=== PATIENT | male | born 1970 | race Caucasian/White ===

== ENCOUNTER 2017-10-14 10:24 | Emergency (ER) | payer MEDICARE, MEDICAID, SELFPAY ==
[2017-10-14 10:26] VITALS: BP 113/73; PULSE 107; RESP 16; TEMP 36.4; O2SAT 95; BMI 25.2
--- NOTE | 2017-10-14 10:47 | RAD_ITS ---
STUDY: X-RAY - LUMBAR SPINE REASON FOR EXAM: Male, 47 years old. Low back pain and right leg pain following a recent TECHNIQUE: 3 view(s) of the lumbar spine were obtained. COMPARISON: None FINDINGS: There is straightening of the normal lumbar lordosis. There is no substantial scoliosis. There is a normal alignment of the vertebrae. There is multilevel endplate spondylosis of the lumbar vertebrae. There is multi-level degenerative disc disease with multi-level disc space narrowing. The soft tissue structures are unremarkable. RAD/Lumbar Spine 2 or 3 Views IMPRESSION: Degenerative changes of the spine, as detailed above. Straightening of the normal lumbar lordosis. Electronically Signed: Sree García MD at 11:34 EDT Tel [phone], Service support ,
[2017-10-14] MEDS: Ketorolac 30 MG/ML Syringe IM (10:55)
[2017-10-14] MEDS: Orphenadrine 60 MG/2 ML Ampul IM (10:55)
--- NOTE | 2017-10-14 11:05 | ED.VISSUMM ---
- ER Visit Summary Date of Service: 10/14/17 Chief Complaint: Back pain History of Present Illness: The patient is a 47 M who presents with back pain that became worse today. Patient states he has a history of chronic back pain and is homeless. Patient states he slept on a hotel floor last night and his pain became worse today. Patient states the pain radiates down his right leg. Patient states this is typical for his sciatica. Patient admits to some numbness and tingling in his right lower extremity. Patient denies any weakness. Patient denies any bowel or bladder changes. Patient denies any saddle anesthesia. Patient denies any recent trauma or injury. Physical Examination: Vital signs are stable. Patient is afebrile. Patient is in no acute distress. Musculoskeletal exam reveals tenderness and spasm of the lumbar paraspinal muscles. There is some mild midline tenderness. There is no bony crepitance or step-off. Range of motion was slightly limited in all motion secondary to pain. Strength is 5/5 bilateral. There is no sensory deficits noted. Tendon reflexes were 2+/4 bilaterally in the lower extremities. The remaining physical exam is within normal limits. Test Results: X-rays of the lumbar spine were obtained. There is no acute spondylolisthesis or fracture. Emergency Department Course and Treatment: Patient was given injections of Toradol and Norflex here. Patient states his pain was starting to improve on reevaluation. Patient was given prescriptions for Naprosyn and Flexeril. Patient was instructed to follow-up with his primary care physician in 5-7 days. Patient understood and was agreeable with the plan. All questions were answered. Disposition: Discharged home Impression: Acute low back pain This note was generated with [employer] dictation software. It may contain incorrect words, spelling, and punctuation that were not noted in review of the chart prior to signing ED Disposition - Plan for ED Patient: Disposition: Home or Assisted Living Chief Complaint: Back Diagnosis: Acute low back pain Prescriptions: Naproxen [Naprosyn] 500 mg PO BID PRN PRN #20 tab PRN Reason: Pain Cyclobenzaprine [Flexeril] 10 mg PO TID PRN #20 tab PRN Reason: Muscle Spasm Referrals: Ava Sampson MD [Primary Care Provider] -
[2017-10-14 13:00] VITALS: PULSE 86; RESP 16; O2SAT 98
--- NOTE | 2017-10-14 13:10 | ED.RN ---
1300-Verbal and written d/c instructions given. Unable to obtain BP as patient is very agitated and yelling at staff. Attempted to redirect patient and he walked out of ED with steady gait, continuing to yell at staff. No distress noted.
== END 2017-10-14 13:02 | disposition home or self-care (01) ==
PROVIDERS: Emergency Provider Emergency Medicine; Family Provider Internal Medicine; PCP Internal Medicine
DX: M54.40 Lumbago with sciatica, unspecified side (principal); K59.00 Constipation, unspecified; G89.29 Other chronic pain; M54.2 Cervicalgia; M25.519 Pain in unspecified shoulder; Z59.0 Homelessness
CPT/HCPCS: 72100; 96372; 99282

== ENCOUNTER 2017-10-17 12:14 | Emergency (ER) | payer MEDICARE, MEDICAID, SELFPAY ==
[2017-10-17 12:15] VITALS: BP 149/85; PULSE 92; RESP 20; TEMP 36.9; O2SAT 98; BMI 25.1
--- NOTE | 2017-10-17 12:56 | ED.VISSUMM ---
- ER Visit Summary Date of Service: 10/17/17 Chief Complaint: Back pain History of Present Illness: The patient is a 47 M with left lower back pain. This was exacerbated by sleeping on hotel floor. He has a history of back pain. He was seen in an outside emergency department and had Toradol, but it did not help. He is requesting a narcotic for the pain. He says he follows with a chiropractor. No history of back surgery. No change in bowel or bladder. No sexual dysfunction. No new numbness or weakness. No abdominal pain or GI symptoms. No fevers. Physical Examination: Afebrile and vital signs unremarkable. Left paraspinal tenderness to palpation. No spinal tenderness. Straight leg raise negative. Strength and sensation intact distally. Skin appears normal. Test Results: None indicated Emergency Department Course and Treatment: Patient had prior x-rays. Already had Toradol. Will add Norflex and Kenalog. Will prescribe Flexeril. He can take [id number] naproxen. Follow-up with his chiropractor. Treatment Plan: As above Disposition: Discharged Impression: 1. Acute on chronic lumbar pain This note was generated with [employer] dictation software. It may contain incorrect words, spelling, and punctuation that were not noted in review of the chart prior to signing ED Disposition - Plan for ED Patient: Chief Complaint: Back Referrals: Ava Sampson MD [Primary Care Provider] -
--- NOTE | 2017-10-17 12:58 | ED.DEP ---
ED Disposition - Plan for ED Patient: Chief Complaint: Back Instructions: ED Sprain Strain Lumbar Prescriptions: Cyclobenzaprine [Flexeril] 10 mg PO TID PRN #20 tab PRN Reason: Muscle Spasm Referrals: Ava Sampson MD [Primary Care Provider] -
[2017-10-17] MEDS: Triamcinolone Acetonide 40 MG/ML Vial IM (13:02)
[2017-10-17] MEDS: Orphenadrine 60 MG/2 ML Ampul IM (13:02)
[2017-10-17 13:10] VITALS: BP 140/101; PULSE 82; RESP 16; O2SAT 97
== END 2017-10-17 13:20 | disposition home or self-care (01) ==
PROVIDERS: Emergency Provider Emergency Medicine; Family Provider Internal Medicine; PCP Internal Medicine
DX: M54.40 Lumbago with sciatica, unspecified side (principal); G89.29 Other chronic pain; Z72.0 Tobacco use
CPT/HCPCS: 96372; 99283

== ENCOUNTER → 2018-01-07 11:24 | Outpatient (CLI) | payer MEDICARE, MEDICAID, SELFPAY ==
[2018-01-07 13:04] LABS: ALB/GLOB Ratio 1.4 RATIO (0.9-2.4); AST(SGOT) 21 U/L (15-37); Alanine Aminotransfer ALT/SGPT 31 U/L (16-61); Albumin, Serum 4.4 g/dL (3.2-5.0); Alkaline Phosphatase 87 U/L (45-117); Anion Gap 10 (5-15); BUN 14 mg/dL (7-18); BUN/Creat Ratio 14.7 RATIO (10-20); Calcium,Total 9.2 mg/dL (8.5-10.1); Chloride 101 mmol/L (98-107); Creatinine, Serum 0.95 mg/dL (0.70-1.30); EST Glomerular Filtration Rate 91 mL/min (>60); Est Glom Filt Rate - Afr Amer 110 mL/min (>60); Globulin 3.1 g/dL (2.2-4.2); Glucose 85 mg/dL (74-106); Protein, Total 7.5 g/dL (6.4-8.2); Sodium Level 141 mmol/L (136-145)
[2018-01-07 13:26] LABS: Color, Urine Yellow (Yellow); Glucose, Dipstick Normal (Normal); Leukocyte Esterase-Dipstick 25 /ul (Negative); Nitrite-Dipstick Negative (Negative); Occult Blood-Urine 10 /ul (Negative); Protein-Dipstick 15 mg/dl (Negative); Specific Gravity, Urine 1.025 (1.002-1.030); Urine Bilirubin Dipstick Negative (Negative); Urine Clarity Sl. Cloudy (Clear); Urine Urobilinogen 1 mg/dl (Normal)
[2018-01-07 13:44] LABS: Bacteria 1+ /hpf (None Seen); HIV - WCH Non-Reactive (Nonreactive); Mucous, Urine 4+ /hpf (<or=2+); Red Blood Cells-Urine 0-5 SEEN /hpf (0-5); Squamous Epithelial Cells - UA 0-5 SEEN /hpf (0-5); White Blood Cells 0-5 SEEN /hpf (0-5)
[2018-01-07 15:05] LABS: Ketone-Dipstick 150 mg/dl (Negative)
[2018-01-07 17:00] LABS: Chlamydia Trachomatis by PCR Negative (Negative); Neisserai gonorrhoeae by PCR Negative (Negative); Probe Check PASS; Sample Adequacy Control PASS; Specimen Processing Control PASS
[2018-01-09 03:07] LABS: HEPATITIS B SURFACE AG Negative (Negative); Hepatitis A AB, Total Negative (Negative); Hepatitis A IgM Antibody Negative (Negative); Hepatitis B Core AB IgM Negative (Negative); Hepatitis B Core Ab Total Negative (Negative); Hepatitis C Ab <0.1 s/co ratio (0.0-0.9)
[2018-01-09 03:47] LABS: Rapid Plasmin Reagin (RPR) NONREACTIVE (NONREACTIVE)
[2018-01-09 07:14] LABS: Hep B Surface Antibodies Non Reactive (.); Hep C Antibodies <0.1 s/co ratio (0.0-0.9)
== END ==
PROVIDERS: Family Provider Internal Medicine; PCP Internal Medicine; Visit Provider Nurse Practitioner Family
DX: Z20.5 Contact with and (suspected) exposure to viral hepatitis (principal); Z72.51 High risk heterosexual behavior; Z20.6 Contact with and (suspected) exposure to human immunodeficiency virus [HIV]
CPT/HCPCS: 36415; 80053; 81001; 86592; 86703; 86704; 86705; 86706; 86708; 86709; 86803; 87340; 87491; 87591

== ENCOUNTER 2018-01-07 11:46 | Emergency (ER) | payer MEDICARE, MEDICAID, SELFPAY ==
[2018-01-07 11:47] VITALS: BP 121/75; PULSE 97; RESP 12; TEMP 36.5; O2SAT 98; BMI 24.2
--- NOTE | 2018-01-07 12:08 | ED.VISSUMM ---
- ER Visit Summary Date of Service: 01/07/18 Chief Complaint: Acute on chronic foot pain History of Present Illness: The patient is a 47 M history reportedly of gout, chronic back pain and psychiatric history. Patient states he walked to his primary care physician's office today to be diagnosed with an STD. They sent him to the hospital to get a culture done. And he states of all walking is flared up his gout and he was requesting pain medication so he can walk home. He denies any acute trauma. He said he has had his multiple times that he was having pain for the last several weeks. He denies any fever. On reviewing the patient's medical records he has been here multiple times in the past for different pain issues. He is also been confronted with or his reports in the past that are positive for multiple narcotic prescriptions. Physical Examination: Well-appearing middle-age male. Vital signs are stable afebrile. He is in no acute distress. H EENT exam unremarkable. Poor dentition. Neck nontender. Lungs clear to auscultation bilaterally. Heart regular rate and rhythm no murmur. Abdomen soft nontender. He is moving all 4 extremities. Neurovascular intact. He has strong DP pulses of both feet. There is no swelling. No gross deformities. There really is not an acute flare of gout at this time. He states he has chronic pain in his right great toe at the metatarsal phalangeal joint. It is minimally red it is not really swollen. And is not significantly tender. Test Results: None necessary at this time Emergency Department Course and Treatment: Patient will be offered Motrin for his pain. I do not feel narcotics are necessary and he has had issues with trying to receive narcotics to the ER in the past. Treatment Plan: Patient refused prednisone. And has anti-inflammatories at home. Disposition: Discharge Impression: Acute on chronic foot pain History of gout This note was generated with [employer] dictation software. It may contain incorrect words, spelling, and punctuation that were not noted in review of the chart prior to signing ED Disposition - Plan for ED Patient: Chief Complaint: Other, Pain/Inj Referrals: Ava Sampson MD [Primary Care Provider] -
--- NOTE | 2018-01-07 12:10 | ED.DEP ---
ED Disposition - Plan for ED Patient: Disposition: Home or Assisted Living Chief Complaint: Other, Pain/Inj Instructions: Common Myths About Pain Medications, ED Chronic Pain Management Referrals: Ava Sampson MD [Primary Care Provider] - 1 Week if not improving
[2018-01-07 12:25] VITALS: BP 132/70; PULSE 80; RESP 14; O2SAT 98
[2018-01-07] MEDS: Ibuprofen 600 MG Tablet PO (12:32)
== END 2018-01-07 12:35 | disposition home or self-care (01) ==
PROVIDERS: Emergency Provider Emergency Medicine; Family Provider Internal Medicine; PCP Internal Medicine
DX: M10.9 Gout, unspecified (principal); M25.571 Pain in right ankle and joints of right foot; G89.29 Other chronic pain; M54.5 Low back pain; F31.9 Bipolar disorder, unspecified; Z87.19 Personal history of other diseases of the digestive system; F17.200 Nicotine dependence, unspecified, uncomplicated; Z79.899 Other long term (current) drug therapy; Z20.5 Contact with and (suspected) exposure to viral hepatitis; Z72.51 High risk heterosexual behavior; Z20.6 Contact with and (suspected) exposure to human immunodeficiency virus [HIV]
CPT/HCPCS: 36415; 80053; 81001; 86592; 86703; 86704; 86705; 86706; 86708; 86709; 86803; 87340; 87491; 87591; 99282

== ENCOUNTER 2018-01-14 22:49 | Emergency (ER) | payer MEDICARE, MEDICAID, SELFPAY ==
[2018-01-14 22:49] VITALS: BP 102/75; PULSE 71; RESP 16; TEMP 36.9; O2SAT 99; BMI 22.9
--- NOTE | 2018-01-14 23:13 | ED.VISSUMM ---
- ER Visit Summary Date of Service: 01/14/18 Chief Complaint: Dysuria History of Present Illness: The patient is a 47 M poorly diagnosed by his primary care physician's office with a recent UTI. States is on antibiotic is taken twice a day he believes it is Bactrim. He is complaining of bladder pain and was hoping to get something for the pain. Of note patient is in the ER quite frequently often for pain complaints. He states he is emptying his bladder. Denies any urinary retention. He has had no prior abdominal or surgeries. Physical Examination: Well-appearing middle-age male. Vital signs are stable afebrile. He does not look septic or toxic. He is in no distress. He is well-hydrated. HEENT exam unremarkable. Neck nontender no lymphadenopathy. Lungs clear to auscultation bilaterally. Heart regular rate and rhythm no murmur. Abdomen is soft and nontender. Normal bowel sounds no peritoneal signs. There is no bladder distention. There is no right upper right lower quadrant tenderness. There is no hernias or masses. There is no signs of obstruction. The abdomen is benign patient moving all 4 extremities. Calves are nontender without edema. Neurologically he is awake alert without focal deficits. Back exam is nontender there is no CVA tenderness. Test Results: None Emergency Department Course and Treatment: Discussed with patient options of using Tylenol and Motrin for pain. I explained to him there is absolutely no reason to write for any narcotic pain meds. He will be given a very short course of Pyridium for potential bladder spasm. Treatment Plan: Pyridium 3 times daily for 2 days. Disposition: Discharge Impression: UTI with bladder spasms This note was generated with [employer] dictation software. It may contain incorrect words, spelling, and punctuation that were not noted in review of the chart prior to signing ED Disposition - Plan for ED Patient: Chief Complaint: Complaint Referrals: Ava Sampson MD [Primary Care Provider] -
--- NOTE | 2018-01-14 23:16 | ED.DCSUM_ITS ---
- ER Visit Summary Date of Service: 01/14/18 Chief Complaint: Dysuria History of Present Illness: The patient is a 47 M poorly diagnosed by his primary care physician's office with a recent UTI. States is on antibiotic is taken twice a day he believes it is Bactrim. He is complaining of bladder pain and was hoping to get something for the pain. Of note patient is in the ER quite frequently often for pain complaints. He states he is emptying his bladder. Denies any urinary retention. He has had no prior abdominal or surgeries. Physical Examination: Well-appearing middle-age male. Vital signs are stable afebrile. He does not look septic or toxic. He is in no distress. He is well- hydrated. HEENT exam unremarkable. Neck nontender no lymphadenopathy. Lungs clear to auscultation bilaterally. Heart regular rate and rhythm no murmur. Abdomen is soft and nontender. Normal bowel sounds no peritoneal signs. There is no bladder distention. There is no right upper right lower quadrant tenderness. There is no hernias or masses. There is no signs of obstruction. The abdomen is benign patient moving all 4 extremities. Calves are nontender without edema. Neurologically he is awake alert without focal deficits. Back exam is nontender there is no CVA tenderness. Test Results: None Emergency Department Course and Treatment: Discussed with patient options of using Tylenol and Motrin for pain. I explained to him there is absolutely no reason to write for any narcotic pain meds. He will be given a very short course of Pyridium for potential bladder spasm. Treatment Plan: Pyridium 3 times daily for 2 days. Disposition: Discharge Impression: UTI with bladder spasms This note was generated with [employer] dictation software. It may contain incorrect words, spelling, and punctuation that were not noted in review of the chart prior to signing ED Disposition - Plan for ED Patient: Chief Complaint: Complaint Referrals: Ava Sampson MD [Primary Care Provider] -
--- NOTE | 2018-01-14 23:16 | ED.DEP ---
ED Disposition - Plan for ED Patient: Disposition: Home or Assisted Living Chief Complaint: Complaint Instructions: ED UTI Cystitis Male Prescriptions: Phenazopyridine [Pyridium] 200 mg PO TID #9 tab Referrals: Ava Sampson MD [Primary Care Provider] - 3-5 Days if not improving Additional Instructions: Plenty of fluids and rest. Continue and finish her antibiotic. Pyridium as needed for bladder spasm. This may turn her urine a dark color. Tylenol and Motrin for pain.
[2018-01-14] MEDS: Phenazopyridine 95 MG Tablet 190 MG PO (23:40)
[2018-01-14 23:42] VITALS: BP 112/81; PULSE 68; RESP 14; O2SAT 97
== END 2018-01-14 23:46 | disposition home or self-care (01) ==
PROVIDERS: Emergency Provider Emergency Medicine; Family Provider Internal Medicine; PCP Internal Medicine
DX: N39.0 Urinary tract infection, site not specified (principal); N32.89 Other specified disorders of bladder; F17.200 Nicotine dependence, unspecified, uncomplicated
CPT/HCPCS: 99283

== ENCOUNTER 2018-03-16 13:04 | Emergency (ER) | payer MEDICARE, SELFPAY ==
[2018-03-16 13:05] VITALS: BP 115/82; PULSE 94; RESP 14; TEMP 37; O2SAT 98; BMI 23.6
--- NOTE | 2018-03-16 13:34 | ED.VISSUMM ---
- ER Visit Summary Date of Service: 03/16/18 Chief Complaint: Right hip pain History of Present Illness: The patient is a 48 M who presents with right hip pain. Been ongoing for 2 weeks. He started a new job that requires him to walk around a lot and he states he has been walking 8 miles home every day. The pain is on the anterior part of his hip. Is worse when he walks. Denies any falls or trauma Physical Examination: Vital signs reviewed. Right hip exam reveals tenderness of the anterior part of the hip. Pain with range of motion. No pain with logroll. No deformities. No pain over the greater trochanter Test Results: Right hip x-ray per my interpretation reveals no acute findings. Emergency Department Course and Treatment: Patient has hip pain without any radiographic evidence. Could be muscular strain. He was counseled using ice and stretching. He will continue NSAIDs will follow up with his PCP Treatment Plan: [] Disposition: Discharge Impression: Right hip pain This note was generated with [employer] dictation software. It may contain incorrect words, spelling, and punctuation that were not noted in review of the chart prior to signing ED Disposition - Plan for ED Patient: Chief Complaint: Lower Extremity Injury Referrals: Ava Sampson MD [Primary Care Provider] -
--- NOTE | 2018-03-16 13:48 | ED.DEP ---
ED Disposition - Plan for ED Patient: Disposition: Home or Assisted Living Chief Complaint: Lower Extremity Injury Instructions: ED Sprain Hip Referrals: Ava Sampson MD [Primary Care Provider] -
[2018-03-16 13:54] VITALS: BP 110/78; PULSE 90; RESP 14; O2SAT 98
== END 2018-03-16 14:19 | disposition home or self-care (01) ==
PROVIDERS: Emergency Provider Emergency Medicine; Family Provider Internal Medicine; PCP Internal Medicine
DX: M25.551 Pain in right hip (principal); M19.90 Unspecified osteoarthritis, unspecified site; F31.9 Bipolar disorder, unspecified; Z72.0 Tobacco use
CPT/HCPCS: 73502; 99282

== ENCOUNTER 2018-04-09 11:44 | Emergency (ER) | payer MEDICARE, SELFPAY ==
[2018-04-09 11:45] VITALS: BP 137/87; PULSE 100; RESP 20; TEMP 36.6; O2SAT 100; BMI 24.4
--- NOTE | 2018-04-09 12:36 | ED.VISSUMM ---
- ER Visit Summary Date of Service: 04/09/18 Chief Complaint: Migraine headache History of Present Illness: The patient is a 48 M who presents with a migraine headache that has been getting worse over the past 3 days. Patient states this feels similar to prior migraine headaches. Patient states the pain has gradually gotten worse. Patient admits to some photophobia. Patient denies any nausea or vomiting. Patient denies any paresthesias or weakness. Patient denies any fevers. Patient also states he exacerbated his chronic back pain when he dug a hole to bury a family pet recently. Patient denies any bowel or bladder changes. Patient denies any saddle anesthesia. Physical Examination: Vital signs are stable. Patient is afebrile. Patient is in no acute distress. Cranial nerves II through XII are intact. Strength is 5/5 bilateral in the upper and lower extremities. There are no sensory deficits noted. Patient ambulates without difficulty. Oral mucosa is pink and moist. Neck is supple. Trachea is midline. Is no JVD or lymphadenopathy noted. Heart was regular rate and rhythm. Lungs are clear and equal bilateral. Abdomen is soft and nontender. Bowel sounds are normal. The remaining physical exam is within normal limits. Emergency Department Course and Treatment: Patient was given IV fluids, Compazine, Benadryl, and Toradol. Patient became upset and left the emergency department. Patient took his IV out prior to leaving the department. Patient left without completing treatment. Disposition: Left without completing treatment Impression: Migraine headache This note was generated with [employer] dictation software. It may contain incorrect words, spelling, and punctuation that were not noted in review of the chart prior to signing ED Disposition - Plan for ED Patient: Disposition: Home or Assisted Living Chief Complaint: Headache Diagnosis: Migraine headache Referrals: Ava Sampson MD [Primary Care Provider] -
--- NOTE | 2018-04-09 12:39 | ED.DCSUM_ITS ---
- ER Visit Summary Date of Service: 04/09/18 Chief Complaint: Migraine headache History of Present Illness: The patient is a 48 M who presents with a migraine headache that has been getting worse over the past 3 days. Patient states this feels similar to prior migraine headaches. Patient states the pain has gradually gotten worse. Patient admits to some photophobia. Patient denies any nausea or vomiting. Patient denies any paresthesias or weakness. Patient denies any fevers. Patient also states he exacerbated his chronic back pain when he dug a hole to bury a family pet recently. Patient denies any bowel or bladder changes. Patient denies any saddle anesthesia. Physical Examination: Vital signs are stable. Patient is afebrile. Patient is in no acute distress. Cranial nerves II through XII are intact. Strength is 5/ 5 bilateral in the upper and lower extremities. There are no sensory deficits noted. Patient ambulates without difficulty. Oral mucosa is pink and moist. Neck is supple. Trachea is midline. Is no JVD or lymphadenopathy noted. Heart was regular rate and rhythm. Lungs are clear and equal bilateral. Abdomen is soft and nontender. Bowel sounds are normal. The remaining physical exam is within normal limits. Emergency Department Course and Treatment: Patient was given IV fluids, Compazine, Benadryl, and Toradol. Patient became upset and left the emergency department. Patient took his IV out prior to leaving the department. Patient left without completing treatment. Disposition: Left without completing treatment Impression: Migraine headache This note was generated with [employer] dictation software. It may contain incorrect words, spelling, and punctuation that were not noted in review of the chart prior to signing ED Disposition - Plan for ED Patient: Disposition: Home or Assisted Living Chief Complaint: Headache Diagnosis: Migraine headache Referrals: Ava Sampson MD [Primary Care Provider] -
[2018-04-09] MEDS: proCHLORPERazine 10 MG/2 ML Vial IV (12:57)
[2018-04-09] MEDS: DiphenhydrAMINE 50 MG/ML Syringe 25 MG IV (12:57)
[2018-04-09] MEDS: 0.9% Normal Saline 1,000 ML 999 ML IV (12:57)
[2018-04-09] MEDS: Ketorolac 30 MG/ML Syringe IV (12:57)
== END 2018-04-09 13:16 | disposition home or self-care (01) ==
LOC: ED 12:16
PROVIDERS: Emergency Provider Emergency Medicine; Family Provider Internal Medicine; PCP Internal Medicine
DX: G43.909 Migraine, unspecified, not intractable, without status migrainosus (principal); M54.9 Dorsalgia, unspecified; G89.29 Other chronic pain; F31.9 Bipolar disorder, unspecified; F17.200 Nicotine dependence, unspecified, uncomplicated
CPT/HCPCS: 96361; 96374; 96375; 99282; J7030; A4216

== ENCOUNTER 2018-04-10 18:12 | Emergency (ER) | payer MEDICARE, SELFPAY ==
[2018-04-10 18:14] VITALS: BP 123/97; PULSE 76; RESP 16; TEMP 36.7; O2SAT 98; BMI 23.6
--- NOTE | 2018-04-10 18:58 | ED.DCSUM_ITS ---
- ER Visit Summary Date of Service: 04/10/18 Chief Complaint: Left hand versus a sledgehammer History of Present Illness: The patient is a 48 M that is right-hand dominant. No significant past medical history. Reportedly today the patient was working with someone else he was holding stakes the gentleman was hitting mistakes with a sledgehammer slipped and hit the patient in hand. He denies any prior history or surgery to his left hand. He denies other injuries. Physical Examination: Well-appearing middle-age male. Vital signs stable afebrile. No distress. H EENT exam unremarkable. Poor dentition. Lungs clear to auscultation. Heart regular rhythm no murmur. Chest wall nontender. Abdomen soft nontender. He is moving all 4 extremities. They are neurovascularly intact. Specifically left shoulder, elbow and wrist are nontender normal range of motion no swelling. No deformity. Left hand is superficial abrasions on the dorsum of his left hand. There is no swelling. He has full flexion-extension all digits of the left hand. No bony deformity. Mild tenderness. Normal touch sensation. Hands neurovascular intact. Neurologically is awake alert with no focal motor deficits. Test Results: Left hand x-ray shows no acute abnormality 3 views read by myself. Emergency Department Course and Treatment: Treated for left hand contusion. Motrin here for pain. Treatment Plan: Ice and elevate. Motrin for pain. Follow-up if not improving. Disposition: Discharge Impression: Left hand contusion This note was generated with [employer] dictation software. It may contain incorrect words, spelling, and punctuation that were not noted in review of the chart prior to signing ED Disposition - Plan for ED Patient: Chief Complaint: Upper Extremity Injury Referrals: Ava Sampson MD [Primary Care Provider] -
--- NOTE | 2018-04-10 18:58 | ED.DEP ---
ED Disposition - Plan for ED Patient: Disposition: Home or Assisted Living Chief Complaint: Upper Extremity Injury Instructions: ED Contusion Upper Ext Referrals: Ava Sampson MD [Primary Care Provider] - 1 Week if not improving Additional Instructions: Ice and elevate. Alternate Tylenol and/or Motrin for pain. Follow-up if not improving.
--- NOTE | 2018-04-10 19:00 | RAD_ITS ---
STUDY: X-RAY - LEFT HAND REASON FOR EXAM: Male, 48 years old. Injury with hammer TECHNIQUE: 3 view(s) of the hand. COMPARISON: None. FINDINGS: Normal radiocarpal articulation. Normal distal radioulnar joint. Normal visualized carpal bones. Normal carpal articulations Normal carpometacarpal articulation of the thumb. Normal second through fifth carpometacarpal joints. Normal metacarpi. Normal metacarpophalangeal joint of the thumb. Normal interphalangeal joint of the thumb. Normal proximal and distal phalanges of the thumb. Normal metacarpophalangeal joints of the second through fifth fingers. Normal proximal and distal interphalangeal joints of the second through fifth fingers. Normal phalanges of the second through fifth fingers. The soft tissue structures are unremarkable. RAD/Hand Min 3 Views IMPRESSION: Normal x-ray examination of the hand. Electronically Signed: Gordon Peterson DO at 19:18 EDT Tel [phone], Service support ,
== END 2018-04-10 19:31 | disposition home or self-care (01) ==
PROVIDERS: Emergency Provider Emergency Medicine; Family Provider Internal Medicine; PCP Internal Medicine
DX: S60.222A Contusion of left hand, initial encounter (principal); S60.512A Abrasion of left hand, initial encounter; M54.9 Dorsalgia, unspecified; W22.8XXA Striking against or struck by other objects, initial encounter; Y93.9 Activity, unspecified; Y92.9 Unspecified place or not applicable; Z72.0 Tobacco use
CPT/HCPCS: 73130; 99282

== ENCOUNTER 2018-04-11 01:12 | Emergency (ER) | payer MEDICARE, SELFPAY ==
[2018-04-11 01:13] VITALS: BP 153/102; PULSE 79; RESP 18; TEMP 36.5; O2SAT 100; BMI 23.6
--- NOTE | 2018-04-11 01:50 | ED.DCSUM_ITS ---
- ER Visit Summary Date of Service: 04/11/18 Chief Complaint: Left ear pain History of Present Illness: The patient is a 48 M sudden left ear pain and bleeding after significant other dug with Q-tip. No hearing loss. Has had issues with right ear with hearing loss, has not seen an ear nose and throat. History of gastric ulcers. No medications taken. Physical Examination: General: Alert and oriented ?3, no acute distress HEENT: Normocephalic, atraumatic. Moist mucosa membranes. Right ear abrasion out canal with cerumen impaction. Left ear: Circumferential abrasion outer canal with no active bleeding. TM was visualized and intact. Neck: supple, nontender. Cardiovascular: Regular rate and rhythm, no murmurs Respiratory: Normal breath sounds, symmetric, no distress Abdomen: Soft, nontender, nondistended Extremities: Nontender, no edema, pulses intact ?4 Neuro: no focal neurological deficits. Test Results: [] Emergency Department Course and Treatment: Patient's left TM was intact. Pain likely from abrasion of the outer canal region. History of gastric ulcers started on Tylenol. Discussed using mineral oil help with moisturization. With right hearing deficits in the past he will be given follow-up with ENT outpatient reevaluation. Treatment Plan: [] Disposition: Discharge Impression: 1. Abrasion left external auditory canal This note was generated with [employer] dictation software. It may contain incorrect words, spelling, and punctuation that were not noted in review of the chart prior to signing ED Disposition - Plan for ED Patient: Disposition: Home or Assisted Living Chief Complaint: Ear Problem Diagnosis: Ear canal abrasion Referrals: Ava Sampson MD [Primary Care Provider] - Zack Hwang MD [STAFF PHYSICIAN] - 3-5 Days Additional Instructions: Tympanic membrane on left intact. Continue Tylenol 1 g every 6 hours. Use mineral oil help with moisturization. Follow up with ear nose and throat reevaluation.
[2018-04-11] MEDS: Acetaminophen 500 MG Tablet 1000 MG PO (02:16)
== END 2018-04-11 02:17 | disposition home or self-care (01) ==
LOC: ED 02:07
PROVIDERS: Emergency Provider Emergency Medicine; Family Provider Internal Medicine; PCP Internal Medicine
DX: S00.412A Abrasion of left ear, initial encounter (principal); S00.411A Abrasion of right ear, initial encounter; H61.21 Impacted cerumen, right ear; X58.XXXA Exposure to other specified factors, initial encounter; Y93.9 Activity, unspecified; Y92.9 Unspecified place or not applicable; Z87.19 Personal history of other diseases of the digestive system
CPT/HCPCS: 99282

== ENCOUNTER 2018-06-02 00:07 | Emergency (ER) | payer MEDICARE, SELFPAY ==
[2018-06-02 00:07] VITALS: BP 109/59; PULSE 102; RESP 18; TEMP 36.3; BMI 24.7
[2018-06-02] MEDS: predniSONE 20 MG Tablet 60 MG PO (00:36)
[2018-06-02] MEDS: proMETHazine 25 MG/ML Syringe IM (00:37)
[2018-06-02] MEDS: Ketorolac 30 MG/ML Syringe IM (00:37)
[2018-06-02] MEDS: Dicyclomine 10 MG Capsule 20 MG PO (00:37)
--- NOTE | 2018-06-02 01:36 | ED.RN ---
THIS NURSE MEDICATED THIS PATIENT AND APPROX TEN MINUTES THE PATIENTS GIRLFRIEND CAME OUT AND STATED HIS MEDS WERE HELPING AND THEN SHE STATED THEY WANTED TO GO TO ANOTHER HOSPITAL AND THEN THEY SIGNED AN AMA FORM AND THEN LEFT
--- NOTE | 2018-06-02 08:16 | ED.VISSUMM ---
- ER Visit Summary Date of Service: 06/02/18 Chief Complaint: Abdominal pain History of Present Illness: The patient is a 48 M presenting for evaluation secondary to abdominal pain. Patient has a reported history of Crohn's disease, states that he is not currently on any sort of medications for this. Patient states over the course last 4 days he has been dealing with diffuse crampy intermittent abdominal pain. This has no exacerbating relieving factors. Patient states over the course of the last 4 days he has had 2-3 episodes of nonbloody nonbilious emesis. He also states that he has been having 3-4 episodes of loose mildly bloody diarrhea each day. Patient denies any presence of fevers. Patient states that he tries to avoid doctors Physical Examination: Vital signs notable for heart rate of 102. Unkempt male no acute distress sitting in the bed with a large full cup of coffee. Head normocephalic. Moist mucous membranes. Heart regular rate and rhythm lungs sounds clear. Abdomen was tender diffusely with no guarding or rebound tenderness and is nondistended. Remainder of physical otherwise unremarkable. Test Results: CT abdomen and pelvis was ordered but not performed Emergency Department Course and Treatment: Patient presented for evaluation secondary to abdominal pain. Patient has a reported history of Crohn's, but I reviewed his records and it does not seem that this is documented anywhere. His abdominal exam is relatively benign, but given his reported history I did order imaging and I am medications for the patient. Patient refuses IM medications, and stated that if we wanted to treat him with anything else he was going to leave. Patient eloped from the emergency department. Disposition: Elopement Impression: 1. Abdominal pain This note was generated with [employer] dictation software. It may contain incorrect words, spelling, and punctuation that were not noted in review of the chart prior to signing ED Disposition - Plan for ED Patient: Disposition: Against Medical Advice Chief Complaint: Abd Pain Referrals: Ava Sampson MD [Primary Care Provider] -
== END 2018-06-02 01:38 | disposition left against medical advice (07) ==
LOC: ED 01:19
PROVIDERS: Emergency Provider Emergency Medicine; Family Provider Internal Medicine; PCP Internal Medicine
DX: R10.9 Unspecified abdominal pain (principal); R11.2 Nausea with vomiting, unspecified; R19.7 Diarrhea, unspecified; F31.9 Bipolar disorder, unspecified
CPT/HCPCS: 96372; 99281

== ENCOUNTER 2018-08-03 21:34 | Emergency (ER) | payer MEDICARE, SELFPAY ==
[2018-08-03 21:36] VITALS: BP 104/73; PULSE 89; RESP 16; TEMP 36.7; O2SAT 98; BMI 23.6
--- NOTE | 2018-08-03 21:39 | RAD_ITS ---
STUDY: X-RAY - RIGHT SHOULDER REASON FOR EXAM: Male, 48 years old. Pain. Fall TECHNIQUE: 4 view(s) of the shoulder. COMPARISON: None. FINDINGS: Normal glenohumeral articulation. Normal acromioclavicular joint. Normal acromion. Normal humeral head and visualized proximal humerus. The soft tissue structures are unremarkable. There is no demonstrated fracture. Normal visualized pulmonary apex. RAD/Shoulder min 2 Views IMPRESSION: Normal x-ray examination of the shoulder. Electronically Signed: Chidi Steiner MD at 21:57 EST , Service support ,
--- NOTE | 2018-08-03 21:40 | RAD_ITS ---
STUDY: X-RAY - RIGHT HAND REASON FOR EXAM: Male, 48 years old. Pain. Fall TECHNIQUE: 3 view(s) of the hand. COMPARISON: None. FINDINGS: Normal radiocarpal articulation. Normal distal radioulnar joint. Normal visualized carpal bones. Normal carpal articulations Normal carpometacarpal articulation of the thumb. Normal second through fifth carpometacarpal joints. s cortical thickening of the proximal fourth metacarpal suggesting healed fracture. Normal metacarpophalangeal joint of the thumb. Normal interphalangeal joint of the thumb. Normal proximal and distal phalanges of the thumb. Normal metacarpophalangeal joints of the second through fifth fingers. Normal proximal and distal interphalangeal joints of the second through fifth fingers. Normal phalanges of the second through fifth fingers. There is no acute fracture seen. There is metallic foreign body in the soft tissues of the thumb. RAD/Hand Min 3 Views IMPRESSION: There is no acute fracture seen. There is healed fourth metacarpal fracture. Foreign body in the soft tissues of the thumb. Electronically Signed: Chidi Steiner MD at 21:59 EST , Service support ,
--- NOTE | 2018-08-03 23:29 | RAD_ITS ---
STUDY: X-RAY - RIGHT ELBOW REASON FOR EXAM: Male, 48 years old. Pain, fall TECHNIQUE: 3 view(s) of the elbow. COMPARISON: None. FINDINGS: Normal visualized humerus, radius and ulna. Normal radiocapitellar and ulnotrochlear articulations. The soft tissue structures are unremarkable. RAD/Elbow min 3 Views IMPRESSION: Normal x-ray examination of the elbow. Electronically Signed: Gordon Peterson DO at 23:48 EST Tel [phone], Service support ,
[2018-08-03] MEDS: Cephalexin 250 MG Capsule 500 MG PO (23:51)
[2018-08-03] MEDS: HYDROcodone Bitartrate/Apap 5/325 Tablet PO (23:51)
--- NOTE | 2018-08-04 | ED.DCSUM_ITS ---
- ER Visit Summary Date of Service: 08/03/18 Chief Complaint: Fall, injury History of Present Illness: The patient is a 48 M presents to the emergency department 1 week after mechanical fall. Patient was in his trailer. He was leaning towards the window and fell out. He went through the window and landed on the ground. He did have broken glass. He suffered a laceration there is elbow. He also had multiple small abrasions. He cleaned his wounds and super glued to the 3 cm laceration of his elbow. Since then, has had persistent pain in the hand in the elbow. He denies any fevers or chills. His tetanus was less than 5 years ago. He is not taken anything for the pain besides ibuprofen. Physical Examination: Exam is relatively unremarkable. Patient does have superficial abrasions on the dorsum of the right hand. Flexion and extension are intact. Pulses are normal. He also has a closed laceration approximately 3 cm of the elbow. There is minimal erythema the wound edges. There is no tenderness to palpation. There is no drainage. He also has mild tenderness of the shoulder, but no gross laxity Test Results: [] Emergency Department Course and Treatment: X-rays were obtained was areas of maximum tenderness. There is no evidence of fracture. There was questionable metallic foreign body in the right thumb and I did reexamine this area. There is no tenderness. There is no puncture wound. This may be a chronic finding as I do not see any open area. There is no evidence of erythema or edema. The patient's wound edges of his laceration at the repair with superglue are mildly erythematous. I would place him on Keflex. He will given 1 day of analgesics. He was counseled concerning symptoms and reasons to return. He will be discharged home. Treatment Plan: [] Disposition: Discharge Impression: Multiple abrasions status post fall This note was generated with [employer] dictation software. It may contain incorrect words, spelling, and punctuation that were not noted in review of the chart prior to signing ED Disposition - Plan for ED Patient: Chief Complaint: Fall Instructions: ED Mechanical Fall Prescriptions: Cephalexin [Keflex] 500 mg PO Q6 #40 cap Referrals: Ava Sampson MD [Primary Care Provider] -
== END 2018-08-04 00:06 | disposition home or self-care (01) ==
LOC: ED 23:47
PROVIDERS: Emergency Provider Emergency Medicine; Family Provider Internal Medicine; PCP Internal Medicine
DX: S60.511A Abrasion of right hand, initial encounter (principal); S51.011A Laceration without foreign body of right elbow, initial encounter; M25.511 Pain in right shoulder; M79.5 Residual foreign body in soft tissue; W13.4XXA Fall from, out of or through window, initial encounter; Y93.9 Activity, unspecified; Y92.9 Unspecified place or not applicable; Z72.0 Tobacco use
CPT/HCPCS: 73030; 73080; 73130; 99283

== ENCOUNTER 2018-10-03 21:32 | Emergency (ER) | payer MEDICARE, MEDICAID, SELFPAY ==
[2018-10-03 21:33] VITALS: BP 131/74; PULSE 96; RESP 18; TEMP 37.2; O2SAT 99; BMI 23.6
--- NOTE | 2018-10-03 22:05 | RAD_ITS ---
STUDY: X-RAY CHEST REASON FOR EXAM: Male, 48 years old. Cold symptoms for 2 days. TECHNIQUE: Single AP portable view of the chest. COMPARISON: Prior comparison studies are not available for review at this time. FINDINGS: The lungs are clear and expanded. There is no demonstrated pleural abnormality. Normal size heart. Normal mediastinum and radha. Normal visualized pulmonary arteries. Normal visualized aortic arch and descending thoracic aorta. The thoracic spine is not well-visualized. Normal visualized ribs, clavicles, and shoulders. There is no demonstrated abnormality of the visualized soft tissue structures of the upper abdomen. RAD/Chest 1 View (Portable) IMPRESSION: No active pulmonary disease. Electronically Signed: Chilango Dodson MD at 23:05 EST Tel , Service support ,
--- NOTE | 2018-10-03 22:12 | ED.DCSUM_ITS ---
- ER Visit Summary Date of Service: 10/03/18 Chief Complaint: URI History of Present Illness: The patient is a 48 M presenting with URI symptoms. He states this started 2 days ago. He has subjective fever, cough. He had nausea vomiting earlier today. Denies abdominal pain. He does have sick contacts. Denies other complaints. Physical Examination: Vitals are stable. Patient is afebrile. Alert no acute distress. HEENT exam is unremarkable. Neck is supple. Lungs are clear and equal bilaterally. Heart is regular rate and rhythm. Abdomen is soft nontender nondistended. No guarding or rebound Extremities are unremarkable. Skin is warm and dry. No focal neurologic deficit. Remainder of exam is unremarkable. Emergency Department Course and Treatment: Chest x-ray shows no acute process. Influenza negative. Patient was given prescription for Tessalon Perles. Advised to follow-up with primary care physician. Advised return to ED if worsening complaints. Disposition: Discharge home Impression: URI This note was generated with [employer] dictation software. It may contain incorrect words, spelling, and punctuation that were not noted in review of the chart prior to signing ED Disposition - Plan for ED Patient: Referrals: Ava Sampson MD [Primary Care Provider] -
--- NOTE | 2018-10-03 23:10 | ED.DEP ---
ED Disposition - Plan for ED Patient: Instructions: ED Upper Resp Infec No Abx Tx Prescriptions: Benzonatate [Tessalon Perle] 200 mg PO TID PRN PRN #20 capsule PRN Reason: Cough Referrals: Ava Sampson MD [Primary Care Provider] -
[2018-10-03 23:29] VITALS: PULSE 87; RESP 15; O2SAT 97
== END 2018-10-03 23:31 | disposition home or self-care (01) ==
PROVIDERS: Emergency Provider Emergency Medicine; Family Provider Internal Medicine; PCP Internal Medicine
DX: J06.9 Acute upper respiratory infection, unspecified (principal); Z72.0 Tobacco use
CPT/HCPCS: 71045; 87804; 99282

== ENCOUNTER → 2018-11-16 09:25 | Outpatient (CLI) | payer MEDICARE, SELFPAY ==
[2018-11-16 09:15] VITALS: BMI 23.6
[2018-11-16 12:27] LABS: Absolute Lymphocyte Count 2.23 X10^3/ul (0.83-4.51); Absolute Neutrophil Count 8.5 X10^3/uL (2.0-7.7); Basophil# 0.06 X10^3/uL; Basophil% 0.5 % (0-1); Eosinophil# 0.22 X10^3/uL; Eosinophils% 1.9 % (0-5); Hematocrit 46.2 % (40-54); Hemoglobin 15.5 g/dl (13.0-16.5); Lymphocyte # 2.23 X10^3/ul (4.0); Lymphocyte % 18.8 % (19-41); Mean Corp Hgb Conc 33.5 g/gl (32-36); Mean Corpuscular Hgb 33.4 pg (27.0-32.0); Mean Corpuscular Volume 99.6 fL (80-94); Mean Platelet Vol. 9.5 fl (6.2-12.0); Monocyte# 0.88 X10^3/uL; Monocyte% 7.4 % (0-10); Neutrophil # 8.47 X10^3/uL (2.7-7.7); Neutrophil % 71.2 % (47-70); Platelet Count 285 K/mm3 (150-450); RBC Distribution Width CV 14.4 % (11.6-14.6); RBC Distribution Width SD 52.4 fl (35.1-43.9); Red Blood Count 4.64 M/mm3 (4.6-6.2); White Blood Count 11.9 K/mm3 (4.4-11.0)
[2018-11-16 12:30] LABS: POSITIVE COUNT NO; POSITIVE DIFFERENTIAL NO; POSITIVE MORPHOLOGY NO
[2018-11-16 12:41] LABS: ALB/GLOB Ratio 1.4 RATIO (0.9-2.4); AST(SGOT) 20 U/L (15-37); Alanine Aminotransfer ALT/SGPT 37 U/L (16-61); Albumin, Serum 3.8 g/dL (3.2-5.0); Alkaline Phosphatase 82 U/L (45-117); Anion Gap 2 (5-15); BUN 17 mg/dL (7-18); BUN/Creat Ratio 17.8 RATIO (10-20); Calcium,Total 8.4 mg/dL (8.5-10.1); Chloride 106 mmol/L (98-107); Creatinine, Serum 0.96 mg/dL (0.70-1.30); EST Glomerular Filtration Rate 90 mL/min (>60); Est Glom Filt Rate - Afr Amer 109 mL/min (>60); Globulin 2.7 g/dL (2.2-4.2); Glucose 89 mg/dL (74-106); Potassium 4.4 mmol/L (3.5-5.1); Protein, Total 6.5 g/dL (6.4-8.2); Sodium Level 137 mmol/L (136-145)
== END ==
PROVIDERS: Family Provider Internal Medicine; PCP Internal Medicine; Visit Provider Internal Medicine
DX: R19.4 Change in bowel habit (principal); R10.9 Unspecified abdominal pain
CPT/HCPCS: 36415; 80053; 85025

== ENCOUNTER 2018-12-21 13:32 | Emergency (ER) | payer MEDICARE, MEDICAID, SELFPAY ==
[2018-11-16 09:15] VITALS: BMI 23.6
[2018-12-21 13:33] VITALS: BP 105/71; PULSE 79; RESP 18; TEMP 36.4; O2SAT 98; BMI 25.8
--- NOTE | 2018-12-21 14:00 | ED.DCSUM_ITS ---
- ER Visit Summary Date of Service: 12/21/18 Chief Complaint: [] Acute recurrent lumbar back pain History of Present Illness: The patient is a 48 M [] lower back pain extensive prior evaluations by his history, indicates he was up on top of his trailer doing something he slipped and turned in awkward fashion has recurrence of his left-sided lumbar back pain that radiates to his buttock, he states he is normally managed by his outpatient providers and his chiropractor however it is and they are closed and he came to the emergency department he denies bowel or bladder complaints denies any direct trauma throughout all of his prior outpatient evaluations is never been told he requires back surgery Physical Examination: [] vSigns within normal range General, no distress resting comfortably HEENT is generally unremarkable The neck is supple no adenopathy Cardiovascular, regular rate and rhythm Lungs, clear bilateral Abdomen, soft nontender Extremities, no clubbing cyanosis or edema, he is able to stand and walk without difficulty, he can raise up on his toes bend his knees with no difficulty no radiation #6 paresthesias no signs of cauda equina notes significant pain to palpation of the back rather subjective complaint of pain to the left paralumbar musculature Neurologic, awake alert answering questions appropriately moving all 4 extremities Test Results: [] Emergency Department Course and Treatment: [] Patient assures me this is his typical exacerbation he has no new symptoms he has had these symptoms for years there is nothing acute or life-threatening but no red flag signs or symptoms this time he is treated with one [place] tablet Toradol I have explained further ongoing chronic pain management needs to be by his providers and not the emergency department due to state regulations etc. he understands Treatment Plan: [] Disposition: [] Home stable Impression: [] Acute recurrent lumbar back pain This note was generated with [employer] dictation software. It may contain incorrect words, spelling, and punctuation that were not noted in review of the chart prior to signing ED Disposition - Plan for ED Patient: Instructions: ED Low Back Pain Injury, ED Spasm Back No Trauma Referrals: Ava Sampson MD [Primary Care Provider] -
[2018-12-21] MEDS: HYDROcodone Bitartrate/Apap 5/325 Tablet PO (14:07)
[2018-12-21] MEDS: Ketorolac 60 MG/2 ML Vial IM (14:07)
[2018-12-21 14:55] VITALS: PULSE 89; RESP 14
== END 2018-12-21 14:56 | disposition home or self-care (01) ==
LOC: ED 14:04
PROVIDERS: Emergency Provider Emergency Medicine; Family Provider Internal Medicine; PCP Internal Medicine
DX: M54.5 Low back pain (principal); X50.1XXA Overexertion from prolonged static or awkward postures, initial encounter; Y93.9 Activity, unspecified; Y92.9 Unspecified place or not applicable
CPT/HCPCS: 96372; 99283

== ENCOUNTER 2019-01-13 14:56 | Emergency (ER) | payer MEDICARE, MEDICAID, SELFPAY ==
[2019-01-13 14:57] VITALS: BP 112/56; PULSE 81; RESP 17; TEMP 36.2; O2SAT 96; BMI 25.3
--- NOTE | 2019-01-13 15:20 | ED.DCSUM_ITS ---
History of Present Illness Chief Complaint: Other, Pain/Inj Informant: Patient Onset: Today Context: Sudden Onset Timing: Continuous Quality: Pain right upper extremity with tingling all digits Location: Right side Current Severity: Mild Maximum Severity: Moderate Worsened by: Movement of neck Relieved by: Remaining still Associated Symptoms: Tingling digits right side Narrative: Patient reports right-sided neck pain noted upon awakening this morning. He has not taken anything for the discomfort. He reports exacerbation with movement of his head and improvement with rest. He reports weakness right upper extremity. Pain is not in a radicular distribution. Pain is radial volar side right forearm and dorsal right forearm also anterior side of right arm. Patient states this is related to a remote injury. He states he will make an appointment to see a chiropractor as soon as he can. Prior similar symptoms: Yes Recent Illness/Hospitalization: No - Past Medical History (1) Arthritis Status: Chronic (2) GERD (gastroesophageal reflux disease) Status: Chronic (3) Other cervical disc degeneration at C4-C5 level Status: Chronic (4) Shoulder pain Status: Chronic Past Medical History - Allergies and Home Meds Allergies/Adverse Reactions: Allergies gabapentin [From Neurontin] Adverse Reaction (Verified 01/13/19 14:56) Nausea Primary Care Physician: Ava Sampson MD [Primary Care Provider] - Prior records reviewed: Yes - Scheduled to see Dr. Diane putnam for IBD Surgical History: noncontributory Lives: Alone Smoking Status: Current every day smoker Alcohol: Rare Drugs: None Review of Systems General: Denies: Chills, Fever, Sweats ENT: Denies: Bilateral ear pain, Rhinorrhea, Sore throat Cardiovascular: Denies: Chest pain, Palpitations Respiratory: Denies: Dyspnea, Cough, Dyspnea on exertion Gastrointestinal: Denies: Abdominal pain, Nausea, Vomiting, Diarrhea, Melena, Hematochezia Genitourinary: Denies: Dysuria, Hematuria, Frequency Musculoskeletal: Reports: Neck pain. Denies: Myalgias, Arthralgias, Back pain, Swelling, Extremity Pain Skin: Denies: Rash, Wounds Neurological: Reports: Weakness, Parasthesia, Numbness, - - Reported symptoms right upper extremity. Denies: Headache Psych: Denies: Depression, Anxiety, Suicidal thoughts, Suicidal ideations, -, - Hematologic: Denies: Easy bruising, Easy bleeding Physical Exam Vital Signs/Narrative: Vital Signs Temp Pulse Resp BP Pulse Ox 01/13/19 14:57 97.2 F L 81 17 112/56 L 96 Inital Vital Signs reviewed: Yes General: Well nourished, Well developed, Unkempt, No Acute Distress Head: Normocephalic, Atraumatic Eyes: Perrl, EOMI. Negative for: Pale conjunctiva, Scleral icterus, - ENT: Moist mucous membranes, No rhinorrhea Neck: Supple, No lymphadenopathy, No JVD, - - When asked what makes the pain better he rotated his head to the right and left without hesitation or grimacing and reported severe pain.. Negative for: Nontender Cardiovascular: Regular rate, Regular rhythm, No murmurs, Normal S1, Normal S2 Respiratory: No distress, CTA bilaterally, Chest nontender Extremities: Nontender, No edema, - - Patient reports abduction past 90 degrees over the trapezius muscle. There is pain palpation of the trapezius muscle. There is no limited range of motion elbow, wrist or digits. No rashes noted. Skin: Normal color, No rash, No Trauma. Negative for: Cyanosis, Diaphoresis, Jaundice Neurological: Alert, Oriented x3, Cranial nerves II-XII grossly intact, Normal Strength, Normal Sensation, Normal DTR - This bicep, triceps and brachialis deep tendon reflexes 2+ and symmetric., - - Axillary, median, radial and ulnar function intact. Psychological: Normal affect Diagnostic/Tx/Re-eval - Medical Decision Making Patient symptoms are not consistent with herniated disc. He has no neuro vascular findings. Since there is no contraindication NSAIDs i.e. diabetes, renal disease, peptic ulcer disease will treat with NSAID. Since he awoke with this pain suspect torticollis. ED Disposition - Plan for ED Patient: Disposition: Home or Assisted Living Diagnosis: Torticollis, acute Instructions: Torticollis ([place]) Prescriptions: Naproxen [Naprosyn] 500 mg PO BID #14 tab Transmission Status: Pending to [facility] Referrals: Ava Sampson MD [Primary Care Provider] - 3-5 Days if not improving Additional Instructions: Your prescription was electronically transmitted to [facility].
[2019-01-13] MEDS: Naproxen 250 MG Tablet 500 MG PO (15:41)
== END 2019-01-13 15:49 | disposition home or self-care (01) ==
LOC: ED 15:43
PROVIDERS: Emergency Provider Emergency Medicine; Family Provider Internal Medicine; PCP Internal Medicine
DX: M43.6 Torticollis (principal); R29.898 Other symptoms and signs involving the musculoskeletal system; R20.2 Paresthesia of skin; R20.0 Anesthesia of skin; M50.321 Other cervical disc degeneration at C4-C5 level; M19.90 Unspecified osteoarthritis, unspecified site; F17.200 Nicotine dependence, unspecified, uncomplicated; R10.9 Unspecified abdominal pain
CPT/HCPCS: 36415; 82784; 83516; 86140; 86255; 99282

== ENCOUNTER → 2019-01-13 | Outpatient (CLI) | payer MEDICARE, SELFPAY ==
[2018-12-21 13:33] VITALS: BMI 25.8
[2019-01-13 15:57] LABS: CRP < 2.90 mg/L (0.0-3.0)
[2019-01-15 16:07] LABS: Endomysial Antibody IgA Negative (Negative)
[2019-01-18 11:34] LABS: Immunoglobulin A 237 mg/dL (90-386); t-Transglutaminase IgA <2 U/mL (0-3)
== END | disposition home or self-care (01) ==
LOC: MTLAB 14:40
PROVIDERS: Family Provider Internal Medicine; PCP Internal Medicine; Referring Provider Internal Medicine Gastroenterology; Visit Provider Internal Medicine Gastroenterology
DX: R10.9 Unspecified abdominal pain (principal)
CPT/HCPCS: 36415; 82784; 83516; 86140; 86255

== ENCOUNTER → 2019-01-20 | Outpatient (CLI) | payer MEDICARE, MEDICAID, SELFPAY ==
[2018-12-21 13:33] VITALS: BMI 25.8
[2019-01-13 14:57] VITALS: BMI 25.3
--- NOTE | 2019-01-20 08:01 | RAD_ITS ---
CLINICAL HISTORY: Male, 48 years old. PROCEDURE: CONSENT: SEDATION: FLUOROSCOPY TIME (if supplied): (0:53) minutes/seconds TECHNIQUE: (All elements of maximal sterile barrier technique followed, including US elements as applicable) Patient swallowed barium without difficulty. Multiple films were obtained of the abdomen immediately after swallowing the contrast, 15 minutes, 60 minutes, 90 minutes and 120 minutes this revealed normal delineation of the stomach, duodenal bulb and sweep. The proximal and distal small bowel are unremarkable no evidence of inflammatory bowel disease. Spot films of the cecum showed normal appearance of the ileocecal valve. The later film showed contrast within the large bowel. RAD/Small Bowel Series Only IMPRESSION: Negative small bowel series Electronically Signed: Shiloh John, at 13:35 EDT Tel , Service support ,
== END | disposition home or self-care (01) ==
LOC: RAD 07:59
PROVIDERS: Family Provider Internal Medicine; PCP Internal Medicine; Referring Provider Internal Medicine Gastroenterology; Visit Provider Internal Medicine Gastroenterology
DX: R10.9 Unspecified abdominal pain (principal); R63.4 Abnormal weight loss
CPT/HCPCS: 74250

== ENCOUNTER 2019-04-26 14:54 | Emergency (ER) | payer MEDICARE, MEDICAID, SELFPAY ==
[2019-04-26 14:54] VITALS: BP 132/88; PULSE 103; RESP 16; TEMP 36.8; O2SAT 99; BMI 24.2
[2019-04-26 16:05] VITALS: RESP 20
--- NOTE | 2019-04-26 16:12 | ED.DCSUM_ITS ---
- ER Visit Summary Date of Service: 04/26/19 Chief Complaint: Back pain History of Present Illness: The patient is a 49 M with right upper back pain since this morning. He thinks this was worse after his dog slept on him last night. He said he had this before. He went to the chiropractor, but he said it was not helping today. He is taking Tylenol. Denies any other medication. Denies any other associated symptoms like chest pain, shortness of breath, neurologic symptoms, GI symptoms. Denies any trauma. Physical Examination: Afebrile and vital signs unremarkable except for heart rate of 103. Patient appears uncomfortable but is able to move without too much difficulty. Head and neck unremarkable. Right thoracic spine tender to palpation at right trapezius tender to palpation. Upper extremities unremarkable. Chest nontender. Lungs clear. Heart regular. Abdomen soft. Pulses strong and equal. Test Results: None indicated Emergency Department Course and Treatment: Patient has myofascial back pain. No other associated symptoms, findings, or history. He will be treated as such with Toradol and Norflex. On reevaluation, patient is feeling better. Will be discharged with Flexeril and naproxen. Follow-up with primary care. Treatment Plan: As above Disposition: Discharge Impression: 1. Right thoracic back pain This note was generated with [employer] dictation software. It may contain incorrect words, spelling, and punctuation that were not noted in review of the chart prior to signing ED Disposition - Plan for ED Patient: Referrals: Ava Sampson MD [Primary Care Provider] -
[2019-04-26] MEDS: Orphenadrine 60 MG/2 ML Ampul IM (16:14)
[2019-04-26] MEDS: Ketorolac 60 MG/2 ML Vial IM (16:14)
--- NOTE | 2019-04-26 16:15 | ED.DEP ---
ED Disposition - Plan for ED Patient: Instructions: BACK PAIN (Acute or Chronic) Prescriptions: cycloBENZAPRine HCl [Flexeril] 10 mg PO TID PRN #20 tab PRN Reason: Muscle Spasm Prescription Printed Naproxen [Naprosyn] 500 mg PO BID PRN #20 tab Prescription Printed Referrals: Ava Sampson MD [Primary Care Provider] -
== END 2019-04-26 16:49 | disposition home or self-care (01) ==
LOC: ED 16:43
PROVIDERS: Emergency Provider Emergency Medicine; Family Provider Internal Medicine; PCP Internal Medicine
DX: M54.6 Pain in thoracic spine (principal); M54.2 Cervicalgia; G89.29 Other chronic pain; F31.9 Bipolar disorder, unspecified; Z79.899 Other long term (current) drug therapy; F17.290 Nicotine dependence, other tobacco product, uncomplicated
CPT/HCPCS: 96372; 99282

== ENCOUNTER 2019-07-27 01:14 | Emergency (ER) | payer MEDICARE, MEDICAID, SELFPAY ==
[2019-05-19 13:39] VITALS: BMI 24.9
[2019-07-27 01:15] VITALS: BP 134/90; PULSE 96; RESP 16; TEMP 36.4; O2SAT 97; BMI 27.7
--- NOTE | 2019-07-27 02:04 | ED.VIS.GEN ---
History of Present Illness Chief Complaint: Back Informant: Patient Narrative: Patient stated he is having exacerbation of foot pain back pain and headache. He walked 25 [address] He is having to take care of some things in the family as he has a family member admitted to the hospital. Denies any acute new injury. States his back pain is just worsened from walking all day. He describes a mild throbbing headache. No home treatment. He is here in the hospital and decided to come down for further pain control - Past Medical History (1) Acute bronchitis Status: Acute (2) Abdominal pain Status: Chronic (3) Arthritis Status: Chronic (4) Back pain Status: Chronic (5) Change in bowel habit Status: Chronic (6) Frequent headaches Status: Chronic (7) GERD (gastroesophageal reflux disease) Status: Chronic (8) Knee pain Status: Chronic (9) Other cervical disc degeneration at C4-C5 level Status: Chronic (10) Shoulder pain Status: Chronic Past Medical History - Allergies and Home Meds Allergies/Adverse Reactions: Allergies gabapentin [From Neurontin] Adverse Reaction (Verified 05/19/19 13:38) Nausea Primary Care Physician: Ava Sampson MD [Primary Care Provider] - Prior records reviewed: Yes Past Medical History: - - See problem list Surgical History: noncontributory Lives: With Family Smoking Status: Current every day smoker Alcohol: None Drugs: None Review of Systems Musculoskeletal: Reports: Back pain, Extremity Pain Neurological: Reports: Headache Physical Exam Vital Signs/Narrative: Vital Signs Temp Pulse Resp BP Pulse Ox 07/27/19 01:15 97.6 F L 96 16 134/90 H 97 General: Well nourished, Well developed, No Acute Distress Head: Normocephalic, Atraumatic Eyes: Perrl, EOMI ENT: Moist mucous membranes, No rhinorrhea Neck: Supple, Nontender Cardiovascular: Regular rate, Regular rhythm, No murmurs Respiratory: No distress, CTA bilaterally, Chest nontender Abdomen: Soft, Nontender, Nondistended, Normal bowel sounds Back: Nontender, Normal Inspection Extremities: Nontender, No edema Skin: Normal color, No rash Neurological: Alert, Oriented x3, Cranial nerves II-XII grossly intact, Normal Strength, Normal Sensation Psychological: Normal affect, Normal Mood Diagnostic/Tx/Re-eval - Medical Decision Making Patient resting comfortably. I feel he is just more sore than anything from walking for 25 miles. Give injection of Toradol morphine. We will follow-up as an outpatient. I do not feel he needs imaging. ED Disposition - Plan for ED Patient: Disposition: Home or Assisted Living Diagnosis: Acute exacerbation of chronic low back pain Instructions: BACK PAIN (Acute or Chronic) Referrals: Ava Sampson MD [Primary Care Provider] -
[2019-07-27] MEDS: Ketorolac 15 MG/ML Vial IM (02:29)
[2019-07-27] MEDS: Morphine 4 MG/ML Syringe IM (02:29)
[2019-07-27 02:45] VITALS: RESP 14
== END 2019-07-27 02:45 | disposition home or self-care (01) ==
PROVIDERS: Emergency Provider Emergency Medicine; Family Provider Internal Medicine; PCP Internal Medicine
DX: M54.5 Low back pain (principal); G89.29 Other chronic pain; R51 Headache; M79.673 Pain in unspecified foot; M19.90 Unspecified osteoarthritis, unspecified site; M50.321 Other cervical disc degeneration at C4-C5 level; Z79.899 Other long term (current) drug therapy; F17.200 Nicotine dependence, unspecified, uncomplicated
CPT/HCPCS: 96372; 99282

== ENCOUNTER 2019-08-18 13:32 | Emergency (ER) | payer MEDICARE, MEDICAID, SELFPAY ==
[2019-08-18 13:33] VITALS: BP 126/78; PULSE 95; RESP 18; TEMP 36.9; O2SAT 99; BMI 26.2
[2019-08-18 16:18] VITALS: BP 138/89; PULSE 81; RESP 16; O2SAT 98
--- NOTE | 2019-08-18 16:24 | ED.DCSUM_ITS ---
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 Denies any direct trauma to his spine. Denies any weakness or numbness that is new. Denies any abdominal pain or GI symptoms. Denies any urinary symptoms. Denies fevers or infectious symptoms. Denies any history of spine surgery or fractures. Physical Examination: Afebrile and vital signs unremarkable. Abdomen is soft and nontender. Lumbar spine is diffusely tender to palpation with light touch. Otherwise exam is unremarkable. No CVA tenderness. Straight leg raise negative. Good strength and sensation. Pulses strong and equal. Test Results: None indicated Emergency Department Course and Treatment: Patient has myofascial back pain. He has been taking Mobic and naproxen at home. We will have him continue anti- inflammatories. He received a dose of morphine subcutaneous here as well as Norflex. Will prescribe Flexeril. Follow-up with his chiropractor tomorrow. Return for any new or worsening issues. Treatment Plan: As above Disposition: Discharged Impression: 1. Lumbar back pain This note was generated with [employer] dictation software. It may contain incorrect words, spelling, and punctuation that were not noted in review of the chart prior to signing ED Disposition - Plan for ED Patient: Referrals: Ava Sampson MD [Primary Care Provider] -
--- NOTE | 2019-08-18 16:26 | ED.DEP ---
ED Disposition - Plan for ED Patient: Instructions: BACK PAIN (Acute or Chronic) Prescriptions: cycloBENZAPRine HCl [Flexeril] 10 mg PO TID PRN #20 tab PRN Reason: Muscle Spasm Prescription Printed Referrals: Ava Sampson MD [Primary Care Provider] -
[2019-08-18] MEDS: Morphine 4 MG/ML Syringe SC (16:29)
[2019-08-18] MEDS: Orphenadrine 60 MG/2 ML Ampul IM (16:30)
[2019-08-18 16:36] VITALS: BP 121/76; PULSE 80; RESP 16; O2SAT 100
== END 2019-08-18 16:54 | disposition home or self-care (01) ==
LOC: ED 16:32
PROVIDERS: Emergency Provider Emergency Medicine; PCP Internal Medicine
DX: M54.5 Low back pain (principal); K21.9 Gastro-esophageal reflux disease without esophagitis; Z72.0 Tobacco use
CPT/HCPCS: 96372; 99282

== ENCOUNTER 2019-08-23 14:37 | Emergency (ER) | payer MEDICARE, MEDICAID, SELFPAY ==
[2019-08-23 14:38] VITALS: BP 137/94; PULSE 66; RESP 18; TEMP 36.5; O2SAT 100; BMI 26.1
--- NOTE | 2019-08-23 14:49 | ED.DCSUM_ITS ---
History of Present Illness Chief Complaint: Back Informant: Patient Onset: Days Context: Gradual Onset Timing: Intermittent Current Severity: Moderate Maximum Severity: Moderate Narrative: The patient presents to the emergency department with low back pain. He has chronic low back pain and has been evaluated for this multiple times. He states that he is been seeing his chiropractor and been having manipulations. He states that his pain is just out of control today. He denies any red flag symptoms. It does not radiate down his legs. He denies any falls or new trauma. He is still able to ambulate without issue. Prior similar symptoms: No Recent Illness/Hospitalization: No Past Medical History - Allergies and Home Meds Allergies/Adverse Reactions: Allergies gabapentin [From Neurontin] Adverse Reaction (Verified 08/23/19 14:38) Nausea Primary Care Physician: Ava Sampson MD [Primary Care Provider] - Prior records reviewed: Yes Past Medical History: - - Chronic back pain Surgical History: noncontributory Smoking Status: Current every day smoker Review of Systems General: Denies: Chills, Fever, Sweats Eyes: Denies: Visual changes - bilaterally, Diplopia ENT: Denies: Rhinorrhea, Sore throat Cardiovascular: Denies: Chest pain, Palpitations Respiratory: Denies: Dyspnea, Cough, Dyspnea on exertion Gastrointestinal: Denies: Abdominal pain, Nausea, Vomiting, Diarrhea, Melena, Hematochezia Genitourinary: Denies: Dysuria, Hematuria, Frequency Musculoskeletal: Reports: Back pain. Denies: Extremity Pain Skin: Denies: Rash, Wounds Neurological: Denies: Headache, Weakness, Numbness Physical Exam Vital Signs/Narrative: Vital Signs Temp Pulse Resp BP Pulse Ox 08/23/19 14:38 97.7 F L 66 18 137/94 H 100 Inital Vital Signs reviewed: Yes General: Well nourished, Well developed, No Acute Distress Head: Normocephalic, Atraumatic Eyes: Perrl, EOMI ENT: Moist mucous membranes, No rhinorrhea Neck: Supple, Nontender Cardiovascular: Regular rate, Regular rhythm, No murmurs Respiratory: No distress, CTA bilaterally, Chest nontender Abdomen: Soft, Nontender, Nondistended, Normal bowel sounds Back: Normal Inspection. Negative for: CVA tenderness - Paraspinal tenderness without midline tenderness. Negative straight leg raise bilaterally., Spinal tenderness Extremities: Nontender, No edema Skin: Normal color, No rash Neurological: Alert, Oriented x3, Cranial nerves II-XII grossly intact, Normal Strength, Normal Sensation Psychological: Normal affect, Normal Mood Diagnostic/Tx/Re-eval - Medical Decision Making The patient presents with an exacerbation of his chronic pain. He has normal pulses and reflexes. He said no fever. He denies IV drug abuse. He has had no trauma therefore I do not see clear indication for imaging. He is very straightforward this is an exacerbation of his chronic pain. 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 His pain will be addressed in the emergency department and he will be discharged to continue his outpatient therapy. Impression Exacerbation of chronic back pain ED Disposition - Plan for ED Patient: Instructions: BACK PAIN (Acute or Chronic) Referrals: Ava Sampson MD [Primary Care Provider] -
[2019-08-23] MEDS: cycloBENZAPRine HCl 10 MG Tablet PO (15:05)
[2019-08-23] MEDS: HYDROcodone Bitartrate/Apap 5/325 Tablet PO (15:05)
[2019-08-23 15:06] VITALS: PULSE 66; RESP 17; O2SAT 100
== END 2019-08-23 15:07 | disposition home or self-care (01) ==
PROVIDERS: Emergency Provider Emergency Medicine; PCP Internal Medicine
DX: M54.5 Low back pain (principal); G89.29 Other chronic pain; F17.200 Nicotine dependence, unspecified, uncomplicated
CPT/HCPCS: 99283

== ENCOUNTER 2019-08-25 13:02 | Emergency (ER) | payer MEDICARE, MEDICAID, SELFPAY ==
[2019-08-25 13:03] VITALS: BP 130/91; PULSE 103; RESP 16; TEMP 36.9; O2SAT 97; BMI 27.1
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
[2019-08-25] MEDS: Morphine 4 MG/ML Syringe IM (13:53)
[2019-08-25] MEDS: Orphenadrine 60 MG/2 ML Ampul IM (13:56)
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
--- NOTE | 2019-08-25 14:58 | ED.DEP ---
ED Disposition - Plan for ED Patient: Instructions: CONTUSION, Back, BACK AND NECK PAIN, General Referrals: Ava Sampson MD [Primary Care Provider] - 3-5 Days
== END 2019-08-25 15:10 | disposition home or self-care (01) ==
LOC: ED 13:44
PROVIDERS: Emergency Provider Emergency Medicine; PCP Internal Medicine
DX: M54.9 Dorsalgia, unspecified (principal); G89.29 Other chronic pain; M79.604 Pain in right leg; R20.2 Paresthesia of skin; F17.200 Nicotine dependence, unspecified, uncomplicated
CPT/HCPCS: 72100; 96372; 99282; A4216

== ENCOUNTER 2019-11-25 11:23 | Emergency (ER) | payer MEDICARE, MEDICAID, SELFPAY ==
[2019-11-25 11:24] VITALS: BP 149/77; PULSE 123; RESP 22; TEMP 35.9; O2SAT 97; BMI 25.1
--- NOTE | 2019-11-25 11:37 | RAD_ITS ---
STUDY: X-RAY - LUMBAR SPINE REASON FOR EXAM: Male, 49 years old. LBP W/ RADIATION DOWN RLE. HX FALL TECHNIQUE: AP and lateral view(s) of the lumbar spine were obtained. COMPARISON: Comparison is made with prior study dated August 25, 2019. FINDINGS: Normal lumbar lordosis. There is no substantial scoliosis. There is a normal alignment of the vertebrae. There is a mild degree of endplate spondylosis of the lumbar vertebrae. Disc space narrowing at the L4-L5 level. The soft tissue structures are unremarkable. RAD/Lumbar Spine 2 or 3 Views IMPRESSION: Degenerative changes of the spine, as detailed above. Electronically Signed: Sree García, at 12:37 EDT , Service support ,
[2019-11-25] MEDS: Ketorolac 30 MG/ML Syringe IM (12:28)
[2019-11-25] MEDS: Orphenadrine 60 MG/2 ML Ampul IM (12:28)
--- NOTE | 2019-11-25 12:40 | ED.VIS.BACK ---
History of Present Illness Chief Complaint: Fall Informant: Patient Onset: Yesterday Context: Sudden Onset Chronic pain exacerbated by: fall Injury: Fall Timing: Continuous Quality: Sharp Location: Lumbar Current Severity: Moderate Maximum Severity: Severe Worsened by: improves with: Movement, Ambulation, Bending Relieved by: Nothing Narrative: 49-year-old male presents with low back pain. He had a fall yesterday. He was mechanical he had no prodromal symptoms and denies hitting his head or losing consciousness. His back was sore in his lower back so he went to the chiropractor today who sent her to the emergency department for evaluation and an x-ray. No loss of bowel or bladder function. No difficulty urinating or constipation. No numbness tingling or weakness of the lower extremities. No headache or neck pain he does not feel lightheaded or dizzy no fevers denies IV drug abuse or history of back surgery. Prior similar symptoms: Yes, With Prior Back Pain Recent Illness/Hospitalization: No Past Medical History - Allergies and Home Meds Allergies/Adverse Reactions: Allergies gabapentin [From Neurontin] Adverse Reaction (Verified 11/25/19 11:24) Nausea Primary Care Physician: Ava Sampson MD [Primary Care Provider] - Prior records reviewed: Yes Past Medical History: - - Arthritis Surgical History: noncontributory Lives: Alone Smoking Status: Former smoker Alcohol: None Drugs: None Review of Systems All systems negative except as indicated General: Denies: Chills, Fever, Malaise Eyes: Denies: Visual changes - bilaterally, Blurred Vision - bilaterally, Diplopia ENT: Denies: Rhinorrhea, Sore throat Cardiovascular: Denies: Chest pain, Palpitations, Heart racing Respiratory: Denies: Dyspnea, Cough, Sputum Gastrointestinal: Denies: Abdominal pain, Nausea, Vomiting, Diarrhea Genitourinary: Denies: Dysuria, Hematuria, Frequency Musculoskeletal: Reports: Back pain. Denies: Myalgias, Arthralgias, Neck pain, Swelling, Extremity Pain Skin: Denies: Rash, Abscess, Abrasions, Wounds Neurological: Denies: Headache, Weakness, Parasthesia, Numbness Psych: Denies: Depression, Anxiety Physical Exam Vital Signs/Narrative: Vital Signs Temp Pulse Resp BP Pulse Ox 11/25/19 11:24 96.6 F L 123 H 22 H 149/77 H 97 Inital Vital Signs reviewed: Yes General: Well nourished, Well developed Head: Normocephalic, Atraumatic Eyes: Perrl, EOMI ENT: Moist mucous membranes, No rhinorrhea Neck: Supple, Nontender, No lymphadenopathy, No JVD Cardiovascular: Regular rate, Regular rhythm, No murmurs Respiratory: No distress, CTA bilaterally, Chest nontender Abdomen: Soft, Nontender, Nondistended, Normal bowel sounds, No masses Back: Normal Inspection, Paraspinal Tenderness, Negative SLR - Right, Negative SLR - Left, - - Patient has bilateral lumbar paraspinal pain on palpation but no midline spinal tenderness. Straight leg raises are negative. Strength testing of lower extremities normal as a sensation pulses and reflexes and gait. Negative for: Spinal tenderness, CVA tenderness Extremeties: Nontender, No edema Skin: Normal color, No rash, No Trauma Neuro: Alert, Oriented, Normal Strength, Normal Sensation, Normal DTR, Normal Gait, Normal Reflexes Psychological: Normal affect, Normal Mood Diagnostic/Tx/Re-eval X-Ray: LS SPine, Read by ED Physician, Read by Radiologist, No Fracture - Medical Decision Making 49-year-old male presenting with low back pain. He was given Toradol and Norflex for pain. X-rays were obtained that showed no acute findings. He was reassured. He was advised to rest ice and I prescribed him both Naprosyn and Flexeril. He will follow-up with his primary care physician or return to the emergency department for worsening symptoms which were discussed ED Disposition - Plan for ED Patient: Disposition: Home or Assisted Living Diagnosis: Contusion of lower back, Arthritis Instructions: ED Contusion Back Prescriptions: cycloBENZAPRine HCl [Flexeril] 10 mg PO TID PRN #20 tab PRN Reason: Muscle Spasm Prescription Printed Naproxen [Naprosyn] 500 mg PO BID #14 tab Prescription Printed Referrals: Ava Sampson MD [Primary Care Provider] -
[2019-11-25 12:53] VITALS: BP 149/77; PULSE 100; RESP 17
== END 2019-11-25 12:54 | disposition home or self-care (01) ==
PROVIDERS: Emergency Provider Physician Assistant Medical; PCP Internal Medicine
DX: S30.0XXA Contusion of lower back and pelvis, initial encounter (principal); M19.90 Unspecified osteoarthritis, unspecified site; W19.XXXA Unspecified fall, initial encounter; Y93.9 Activity, unspecified; Y92.9 Unspecified place or not applicable; Z87.891 Personal history of nicotine dependence
CPT/HCPCS: 72100; 96372; 99282

== ENCOUNTER 2020-01-12 15:37 | Emergency (ER) | payer MEDICARE, MEDICAID, SELFPAY ==
[2020-01-12 15:39] VITALS: TEMP -17.7; TEMP 0; BMI 23.0
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
--- NOTE | 2020-01-12 15:56 | CM.ED ---
SOCIAL WORK RESPONDED TO [employer]. PATIENT . NO FAMILY PRESENT AT THIS TIME. THIS WORKER TO REMAIN AVAILABLE. Chani JAMES MSW, REVENUE ACCOUNTANT.
--- NOTE | 2020-01-12 17:29 | CM.ED ---
SOCIAL WORK PATIENT'S SON PRESENT. EMOTIONAL SUPPORT PROVIDED.
--- NOTE | 2020-01-12 17:46 | ED.RN ---
CALLED [facility] AND UPDATED NEXT OF KIN TO BIOLOGICAL SON NEVA VENEGAS [phone]. BIOLOGICAL AUNT LEIGHANN PATEL [phone].
== END 2020-01-12 19:52 ==
PROVIDERS: Emergency Provider Emergency Medicine; PCP Internal Medicine
DX: I46.9 Cardiac arrest, cause unspecified (principal); S20.20XA Contusion of thorax, unspecified, initial encounter; S30.1XXA Contusion of abdominal wall, initial encounter; S06.9X0A Unspecified intracranial injury without loss of consciousness, initial encounter; S82.892A Other fracture of left lower leg, initial encounter for closed fracture; R40.2430 Glasgow coma scale score 3-8, unspecified time; Y93.9 Activity, unspecified; Y92.9 Unspecified place or not applicable; Z87.891 Personal history of nicotine dependence
CPT/HCPCS: 99282